=== PATIENT | female | born 1995 | race Hispanic/Latino ===

== ENCOUNTER 2021-12-28 03:20 | Emergency (ER) | payer SELFPAY ==
[2021-12-28] MEDS ORDERED: dexAMETHasone 4 MG/ML VIAL IM ONE (06:58)
--- NOTE | 2021-12-28 06:58 | Emergency Department Report ---
ED Back Pain/Injury HPI - General Chief Complaint: Pain General Stated Complaint: LEG AND FOOT PAIN Time Seen by Provider: 12/28/21 06:31 Source: patient Limitations: No Limitations - History of Present Illness Initial Comments: Patient is a 26-year-old female that comes in with what she describes is intermittent numbness and tingling down her left leg. She denies any back pain. 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 She denies any dysuria, vaginal bleeding or discharge. She denies any known trauma. She denies fever or chills. She denies abdominal pain. There is no nausea and vomiting. No diarrhea or constipation. She has no history of this in the past. Patient is neurovascularly intact and ambulatory to the ER. - Related Data Previous Rx's Medication Instructions Recorded Last Taken Type Cyclobenzaprine [Flexeril] 10 mg PO TID PRN #10 tablet 12/28/21 Unknown Rx Ibuprofen [Motrin] 800 mg PO Q8HR PRN #30 tablet 12/28/21 Unknown Rx predniSONE [Deltasone] 20 mg PO DAILY #5 tablet 12/28/21 Unknown Rx Allergies Allergy/AdvReac Type Severity Reaction Status Date / Time No Known Allergies Allergy Verified 12/28/21 03:45 ED Review of Systems ROS: Stated complaint: LEG AND FOOT PAIN Other details as noted in HPI Comment: All other systems reviewed and negative ED Past Medical Hx - Past Medical History Medical history: no medical history Surgical history: no surgical history Psychiatric history: no pertinent history PNEUMATIC JACKETER history: no PNEUMATIC JACKETER history LMP comments: none Family history: no significant family history - Social History Smoking Status: Never Smoker Alcohol use: rarely Drug use: none ED Back Pain Physical Exam - Exam General: Vital signs noted. No distress. Alert and acting appropriately. Back/Abdomen: Yes Straight Leg Raise Pain (Left), No Abdominal Tenderness, No Perithoracic Tenderness, No Perilumbar Tenderness, No Sacroiliac Tenderness, No Flank Tenderness Neuro: Yes Normal Sensation, Yes Normal DTR's, Yes Normal Gait, No Motor Weakness ED Course Vital Signs 12/28/21 03:37 Temperature 98.4 F Pulse Rate 60 Respiratory 18 Rate Blood Pressure 109/47 O2 Sat by Pulse 98 Oximetry ED Medical Decision Making - Medical Decision Making Vital Signs 12/28/21 12/28/21 03:37 07:28 Temperature 98.4 F Pulse Rate 60 63 Respiratory 18 18 Rate Blood Pressure 109/47 Blood Pressure 119/40 [Right] O2 Sat by Pulse 98 100 Oximetry Patient has no urinary or abdominal symptoms. Her pain is classic radiculopathy/sciatica referred pain down her left lateral extremity. She has no signs and symptoms of cauda equina. Patient medicated with Decadron IM in the ER. Patient be discharged home with Flexeril prednisone and Motrin. I have educated her on proper body mechanics. I have also encouraged her to stretch before and after work. She states that they require stretching when they come on shift at her job. I encouraged her to continue to do that. I have encouraged her to stay well-hydrated. Patient is requesting a physical of blood work. Have given her referral to primary care for that. On discharge patient is ambulatory and [id number]. She is taking p.o. She remains neuro intact. Patient verbalizes understanding of discharge plan of care including medications, activity, diet and follow-up. - Differential Diagnosis Sciatica Critical care attestation.: If time is entered above; I have spent that time in minutes in the direct care of this critically ill patient, excluding procedure time. ED Disposition Clinical Impression: Sciatica Qualifiers: Laterality: left Qualified Code(s): M54.32 - Sciatica, left side Disposition: 01 HOME / SELF CARE / HOMELESS Is pt being admited?: No Does the pt Need Aspirin: No Condition: Stable Instructions: Radicular Pain, Sciatica, [id number] Additional Instructions: warm baths meds as ordered body mechanics as we discussed follow up with pcp as we discussed referral below Prescriptions: predniSONE [Deltasone] 20 mg PO DAILY #5 tablet Cyclobenzaprine [Flexeril] 10 mg PO TID PRN #10 tablet PRN Reason: Muscle Spasm Ibuprofen [Motrin] 800 mg PO Q8HR PRN #30 tablet PRN Reason: Pain, Moderate (4-6) Referrals: INDERJIT GONZALES MD [Primary Care Provider] - 3-5 Days Forms: Work/School Release Form(ED) Time of Disposition: 07:09
[2021-12-28 07:29] VITALS: BP 119/40
== END 2021-12-28 07:30 | disposition home or self-care (01) ==
LOC: ED 03:20
DX: M54.32 Sciatica, left side (principal)
CPT/HCPCS: 96372; 99282; J1100